=== PATIENT | male | born 1945 | race Caucasian/White ===

== ENCOUNTER → 2019-12-16 | Outpatient (CLI) | payer OTHER, BC ==
[~2019-12-16] MED LIST: ALLOPURINOL 30300 M3 PO; ASPIRIN EC81 M1 PO; ERYTHROMYCIN E3.5 G3; FISH OIL 1,001000 M1 PO; QUINAPRIL 20 MG20 MG PO; ZOCOR40 MG PO; [UNRECOGNIZED DRUG - OTHER] PO
== END ==
LOC: SJCVC 09:56
PROVIDERS: ATTEND Internal Medicine
DX: I25.118 Atherosclerotic heart disease of native coronary artery with other forms of angina pectoris (principal); E78.5 Hyperlipidemia, unspecified; I10 Essential (primary) hypertension; I65.23 Occlusion and stenosis of bilateral carotid arteries; C64.2 Malignant neoplasm of left kidney, except renal pelvis; C69.51 Malignant neoplasm of right lacrimal gland and duct; Z87.891 Personal history of nicotine dependence; M10.9 Gout, unspecified; Z90.5 Acquired absence of kidney; Z79.899 Other long term (current) drug therapy

== ENCOUNTER → 2020-06-08 | Outpatient (CLI) | payer OTHER, BC | LOC: SJCVCIMAG 08:14 | PROVIDERS: ATTEND Internal Medicine | DX: I25.118 Atherosclerotic heart disease of native coronary artery with other forms of angina pectoris (principal); I49.1 Atrial premature depolarization; E78.5 Hyperlipidemia, unspecified; I10 Essential (primary) hypertension; I65.23 Occlusion and stenosis of bilateral carotid arteries; C64.2 Malignant neoplasm of left kidney, except renal pelvis; C69.51 Malignant neoplasm of right lacrimal gland and duct; Z79.899 Other long term (current) drug therapy ==

== ENCOUNTER → 2020-12-02 | Outpatient (CLI) | payer OTHER, BC ==
[2020-12-02 10:42] LABS: CREATININE 0.9 mg/dL (0.7-1.3)
== END ==
LOC: LAB 09:50 → MRI 09:50
PROVIDERS: ATTEND Internal Medicine
DX: D35.2 Benign neoplasm of pituitary gland (principal)

== ENCOUNTER → 2020-12-04 | Outpatient (CLI) | payer OTHER, BC | LOC: MRI 08:33 | PROVIDERS: ATTEND Internal Medicine | DX: D35.2 Benign neoplasm of pituitary gland (principal); D33.2 Benign neoplasm of brain, unspecified; J34.1 Cyst and mucocele of nose and nasal sinus ==

== ENCOUNTER → 2020-12-10 | Outpatient (CLI) | payer OTHER, BC | LOC: SJCVC 10:38 | PROVIDERS: ATTEND Internal Medicine | DX: I25.118 Atherosclerotic heart disease of native coronary artery with other forms of angina pectoris (principal); E78.5 Hyperlipidemia, unspecified; I10 Essential (primary) hypertension; I65.23 Occlusion and stenosis of bilateral carotid arteries; C64.2 Malignant neoplasm of left kidney, except renal pelvis; C69.51 Malignant neoplasm of right lacrimal gland and duct; D35.2 Benign neoplasm of pituitary gland; J44.9 Chronic obstructive pulmonary disease, unspecified; M10.9 Gout, unspecified; Z88.8 Allergy status to other drugs, medicaments and biological substances; Z79.899 Other long term (current) drug therapy; Z87.891 Personal history of nicotine dependence; Z82.49 Family history of ischemic heart disease and other diseases of the circulatory system ==

== ENCOUNTER → 2021-02-25 | Outpatient (CLI) | payer OTHER, BC | LOC: SJCVC 14:03 | PROVIDERS: ATTEND Internal Medicine Cardiovascular Disease | DX: I48.0 Paroxysmal atrial fibrillation (principal); I25.118 Atherosclerotic heart disease of native coronary artery with other forms of angina pectoris; I10 Essential (primary) hypertension; E78.00 Pure hypercholesterolemia, unspecified; J44.9 Chronic obstructive pulmonary disease, unspecified; E78.5 Hyperlipidemia, unspecified; I65.23 Occlusion and stenosis of bilateral carotid arteries; M10.9 Gout, unspecified; D35.2 Benign neoplasm of pituitary gland; Z79.899 Other long term (current) drug therapy; Z87.891 Personal history of nicotine dependence; Z72.89 Other problems related to lifestyle ==

== ENCOUNTER → 2021-04-14 | Outpatient (CLI) | payer OTHER, BC | LOC: SJCVCIMAG 13:44 | PROVIDERS: ATTEND Internal Medicine Cardiovascular Disease | DX: I08.8 Other rheumatic multiple valve diseases (principal); I48.91 Unspecified atrial fibrillation; J44.9 Chronic obstructive pulmonary disease, unspecified; I10 Essential (primary) hypertension; E78.5 Hyperlipidemia, unspecified; I65.29 Occlusion and stenosis of unspecified carotid artery; I25.118 Atherosclerotic heart disease of native coronary artery with other forms of angina pectoris; C64.9 Malignant neoplasm of unspecified kidney, except renal pelvis; C69.50 Malignant neoplasm of unspecified lacrimal gland and duct; M10.9 Gout, unspecified; I25.10 Atherosclerotic heart disease of native coronary artery without angina pectoris; F10.10 Alcohol abuse, uncomplicated; R00.1 Bradycardia, unspecified; Z79.899 Other long term (current) drug therapy; Z87.891 Personal history of nicotine dependence; Z82.49 Family history of ischemic heart disease and other diseases of the circulatory system; Z88.8 Allergy status to other drugs, medicaments and biological substances ==

== ENCOUNTER → 2021-06-11 | Outpatient (CLI) | payer OTHER, BC | LOC: SJCVC 10:11 | PROVIDERS: ATTEND Internal Medicine | DX: I25.118 Atherosclerotic heart disease of native coronary artery with other forms of angina pectoris (principal); I48.0 Paroxysmal atrial fibrillation; C64.2 Malignant neoplasm of left kidney, except renal pelvis; C69.51 Malignant neoplasm of right lacrimal gland and duct; D35.2 Benign neoplasm of pituitary gland; E78.5 Hyperlipidemia, unspecified; I10 Essential (primary) hypertension; I65.23 Occlusion and stenosis of bilateral carotid arteries; J44.9 Chronic obstructive pulmonary disease, unspecified; Z82.49 Family history of ischemic heart disease and other diseases of the circulatory system; F17.210 Nicotine dependence, cigarettes, uncomplicated; Z72.89 Other problems related to lifestyle; Z88.8 Allergy status to other drugs, medicaments and biological substances; Z79.899 Other long term (current) drug therapy ==